=== PATIENT | female | born 1955 | race Caucasian/White ===

== ENCOUNTER 2019-08-27 08:56 | Emergency (ER) | payer OTHER ==
[~2019-08-27] VITALS: Ht 165.1 cm; Wt 65.8 kg
[2019-08-27 09:20] VITALS: BP_SYST 134
--- NOTE | 2019-08-27 09:20 | NUR ---
DR COBIAN AT BEDSIDE FOR EVALUATION
--- NOTE | 2019-08-27 09:20 | NUR ---
Patient to ER bed 07 to gown for evaluation. Side rails up.
--- NOTE | 2019-08-27 09:22 | NUR ---
Patient arrived in the ED accompanied by , c/o heavy sensation on lower abdomen, suspecting it's a bladder prolapse. Patient is alert and oriented x4, denied any signs and symptoms of respiratory distress. VS WNL, pain level 8/10. Patient is speaking in full sentences.
--- NOTE | 2019-08-27 09:25 | NUR ---
Dr Tabor at bedside examining patient
[2019-08-27] MEDS ORDERED: MORPHINE 2 MG/ML INJ. SYRINGE IM ONE ×2 (09:30→09:45)
[2019-08-27 09:39] LABS: BILIRUBIN,URINE NEGATIVE (NEGATIVE); CLARITY/URINE CLEAR (CLEAR); COLOR,URINE YELLOW (YELLOW); GLUCOSE,URINE NEGATIVE (NEGATIVE); KETONES,URINE NEGATIVE (NEGATIVE); LEUKOCYTE ESTERASE ,URINE NEGATIVE (NEGATIVE); NITRITE, URINE NEGATIVE (NEGATIVE); PH,URINE 6.5 (5.0-8.0); PROTEIN URINE NEGATIVE (NEGATIVE); UROBILINOGEN,URINE 0.2 (0.2-1.0)
[2019-08-27 09:42] LABS: BLOOD, URINE TRACE (NEGATIVE)
[2019-08-27 09:48] LABS: RBC,URINE 0-3 /HPF (0-3); WBC,URINE 0-3 /HPF (0-3)
[2019-08-27 09:49] LABS: BACTERIA,URINE FEW /HPF (None Seen); MUCUS,URINE None Seen /LPF (None Seen)
--- NOTE | 2019-08-27 09:50 | NUR ---
Dr Tabor at bedside examining vaginal area accompanied by myself. family at bedside.
--- NOTE | 2019-08-27 12:15 | NUR ---
Patient given written and verbal discharge instructions and verbalizes understanding. ER MD discussed with patient the results and treatment provided. Patient in stable condition. ID arm band removed. Rx of Tramadol, senokot given. Patient educated on pain management and to follow up with PMD. Pain Scale 0/10. Opportunity for questions provided and answered. Medication side effect fact sheet provided.
[2019-08-27 12:37] VITALS: BP_SYST 134
== END 2019-08-27 12:15 | disposition home or self-care (01) ==
LOC: SED 08:56
DX: K43.9 Ventral hernia without obstruction or gangrene (principal); K59.00 Constipation, unspecified; Z88.0 Allergy status to penicillin; Z88.2 Allergy status to sulfonamides; Z88.1 Allergy status to other antibiotic agents
CPT/HCPCS: 74176; 81000; 96372; 99284; J2270